=== PATIENT | female | born 1960 | race Caucasian/White ===

== ENCOUNTER → 2016-10-18 | Day surgery (SDC) | payer OTHER ==
[~2016-10-18] VITALS: Ht 170.2 cm; Wt 86.6 kg
[~2016-10-18] MED LIST: JANUMET 50-5001 EACH PO; LANSOPRAZOLE30 MG PO; LEVOTHYROXINE137 MCG PO; LIPITOR TAB 2020 MG PO; NORCO 5-325 TA1 EACH PO; PREMARIN0.9 MG PO; QUINAPRIL HCL10 MG PO; VENLAFAXINE HCL75 MG PO; ZETIA10 MG PO
== END | disposition home or self-care (01) ==
LOC: OR 07:10
PROVIDERS: Surgery
PROC: 0JB50ZZ Excision of Left Neck Subcutaneous Tissue and Fascia, Open Approach (ICD-10-PCS; principal; 2016-10-18 07:30)
DX: D17.0 Benign lipomatous neoplasm of skin and subcutaneous tissue of head, face and neck (principal); J45.909 Unspecified asthma, uncomplicated; E78.5 Hyperlipidemia, unspecified; I10 Essential (primary) hypertension; E11.9 Type 2 diabetes mellitus without complications; E55.9 Vitamin D deficiency, unspecified; J18.9 Pneumonia, unspecified organism; E89.0 Postprocedural hypothyroidism; R01.1 Cardiac murmur, unspecified; F17.210 Nicotine dependence, cigarettes, uncomplicated; Z87.442 Personal history of urinary calculi; Z85.850 Personal history of malignant neoplasm of thyroid; Z88.1 Allergy status to other antibiotic agents; Z88.2 Allergy status to sulfonamides; Z79.899 Other long term (current) drug therapy; Z85.40 Personal history of malignant neoplasm of unspecified female genital organ; Z90.710 Acquired absence of both cervix and uterus; Z82.49 Family history of ischemic heart disease and other diseases of the circulatory system; Z80.41 Family history of malignant neoplasm of ovary
CPT/HCPCS: 82962; J1200; J1956; J2250; J2405; J2710; J3010; J7030; J7120

== ENCOUNTER 2020-08-16 22:06 | Inpatient (IN) | payer OTHER ==
[~2020-08-16] VITALS: Ht 170.2 cm; Wt 69.4 kg
[~2020-08-16 22:06] MED LIST changes: +ACCUPRIL10 MG PO; +BREO ELLIPTA 11 EACH INH; +CETIRIZINE HCL10 MG PO; +DEXILANT60 MG PO; +EAR DROPS EARBOTH; +EFFEXOR XR150 MG PO; +EYE DROPS EYEBOTH; +JANUVIA100 MG PO; +LIPITOR80 MG PO; +MONTELUKAST SOD10 MG PO; +SYNTHROID 150150 MCG PO; +VIT D2 PO; +XIGDUO XR 10 M1 EACH PO
[2020-08-16 23:45] LABS: HEMOGLOBIN 14.7 gm/dl (12.3-15.3); RED BLOOD COUNT 5.28 M/UL (4.00-5.10)
[2020-08-17 00:09] LABS: BUN/CREATININE RATIO 14 (0-10)
[2020-08-17] MEDS ORDERED: CLOPIDOGREL75 MG PO (11:46)
[2020-08-17] MEDS ORDERED: KLONOPIN TAB 00.5 MG PO (11:47)
[2020-08-17] MEDS ORDERED: GABAPENTIN100 MG PO (11:47)
[2020-08-17] MEDS ORDERED: OZEMPIC1 MG/0.75 SQ (11:47)
[2020-08-17] MEDS ORDERED: GLIPIZIDE XL5 MG PO (11:48)
[2020-08-17] MEDS ORDERED: DOCUSATE SODIU100 MG PO (11:50)
[2020-08-17] MEDS ORDERED: BIOTIN10 MG PO (11:52)
[2020-08-18 02:33] LABS: WHITE BLOOD COUNT 6.5 K/UL (4.5-11.0)
[2020-08-18 02:40] LABS: HEMOGLOBIN 12.4 gm/dl (12.3-15.3); RED BLOOD COUNT 4.46 M/UL (4.00-5.10)
[2020-08-18 02:53] LABS: BUN/CREATININE RATIO 24 (0-10)
[2020-08-19] MEDS ORDERED: rolling walker XX (09:53)
[2020-08-19] MEDS ORDERED: ELIQUIS 5 MG TAB5 MG PO (09:53)
== END 2020-08-19 12:59 | disposition home or self-care (01) | DRG 65 ==
LOC: ER1 22:06 → ZEROF 08-17 03:04 → MED SURG 4 08-17 03:04
PROVIDERS: Emergency Medicine; Internal Medicine; ADMIT Internal Medicine
DX: I63.9 Cerebral infarction, unspecified (principal); I69.354 Hemiplegia and hemiparesis following cerebral infarction affecting left non-dominant side; I10 Essential (primary) hypertension; E11.9 Type 2 diabetes mellitus without complications; H53.8 Other visual disturbances; I45.81 Long QT syndrome; E87.6 Hypokalemia; Z79.82 Long term (current) use of aspirin; Z87.891 Personal history of nicotine dependence; Z88.2 Allergy status to sulfonamides; Z86.73 Personal history of transient ischemic attack (TIA), and cerebral infarction without residual deficits; Z85.850 Personal history of malignant neoplasm of thyroid; Z79.01 Long term (current) use of anticoagulants
CPT/HCPCS: ECHO; 36415; 70450; 70551; 71045; 80048; 80053; 81001; 82550; 82553; 82962; 83735; 83874; 84132; 84439; 84443; 84484; 85025; 85610; 85652; 85730; 86140; 86141; 93005; 93270; 93306; 94640; 94664; 96372; 96374; 96375; 97116-GP-CQ; 97162; 99285; G0378; J1100; J2270; J2765; U0002

== ENCOUNTER → 2020-09-15 | Outpatient (CLI) | payer OTHER ==
[~2020-09-15] MED LIST changes: +BIOTIN10 MG PO; +CLOPIDOGREL75 MG PO; +DOCUSATE SODIU100 MG PO; +ELIQUIS 5 MG TAB5 MG PO; +GABAPENTIN100 MG PO; +GLIPIZIDE XL5 MG PO; +KLONOPIN TAB 00.5 MG PO; +OZEMPIC1 MG/0.75 SQ; +rolling walker XX
== END ==
LOC: KOH-I 13:00
DX: R51.9 Headache, unspecified (principal)
CPT/HCPCS: 70450

== ENCOUNTER → 2021-07-08 | Outpatient (CLI) | payer OTHER | LOC: KOH-I 10:21 | DX: R10.13 Epigastric pain (principal); R11.2 Nausea with vomiting, unspecified | CPT/HCPCS: 76705 ==

== ENCOUNTER → 2021-10-27 | Outpatient (CLI) | payer MEDICARE | LOC: KOH-I 11:30 | DX: M54.6 Pain in thoracic spine (principal); M47.814 Spondylosis without myelopathy or radiculopathy, thoracic region | CPT/HCPCS: 72070 ==